=== PATIENT | male | born 1970 | race Caucasian/White ===

== ENCOUNTER 2019-03-24 18:20 | Emergency (ER) | payer OTHER ==
--- NOTE | 2019-03-24 18:33 | PDOC ---
Rapid Medical Evaluation Time Seen by Provider: 03/24/19 18:30 Medical Evaluation: 03/24/19 18:30 CC: lowwer back pain x2-3 weeks. Denies saddle anesthesia, incontinence of B/B, urinary retention, trauma PE: no bony tenderness to l/s spine Orders: tylenol Patient will proceed to ER for further evaluation. Discharge Disposition - Diagnosis Low back pain - Referrals - Patient Instructions - Post Discharge Activity
[2019-03-24 18:35] VITALS: BP 134/86; PULSE 99; TEMP 98; BMI 29.9
[2019-03-24] MEDS ORDERED: KETOROLAC TROMETHAMINE 60 MG/2 ML VIAL IM ONE (19:26)
[2019-03-24] MEDS ORDERED: diazePAM 5 MG TABLET PO ONE (19:26)
[2019-03-24] MEDS ORDERED: diazePAM 5 MG TABLET ONE (19:31)
[2019-03-24] MEDS ORDERED: KETOROLAC TROMETHAMINE 60 MG/2 ML VIAL ONE (19:31)
--- NOTE | 2019-03-24 20:19 | PDOC ---
History of Present Illness - General Chief Complaint: Back Pain Stated Complaint: SACRAL/PAIN Time Seen by Provider: 03/24/19 18:30 - History of Present Illness Initial Comments: 03/24/19 20:15 48-year-old male without comorbidities presents for evaluation of lower back pain with posterior lateral right leg radicular symptoms x2 days. No loss of bowel bladder function systemic symptoms or saddle paresthesias. Past History - Past Medical History Allergies/Adverse Reactions: Allergies Allergy/AdvReac Type Severity Reaction Status Date / Time No Known Allergies Allergy Verified 03/24/19 18:31 Home Medications: Ambulatory Orders Cyclobenzaprine HCl [Flexeril 10 mg] 10 mg PO HS PRN #10 tablet 03/24/19 Methylprednisolone [Medrol Dose Bryan] 4 mg PO ASDIR #21 tablet 03/24/19 - Psycho Social/Smoking Cessation Hx Smoking History: Never smoked Have you smoked in the past 12 months: No Hx Alcohol Use: Yes Drug/Substance Use Hx: No Review of Systems - Review of Systems Musculoskeletal: Yes: Back Pain *Physical Exam - Vital Signs Last Vital Signs Temp Pulse Resp BP Pulse Ox 98 F 99 H 18 134/86 100 03/24/19 18:32 03/24/19 18:32 03/24/19 18:32 03/24/19 18:32 03/24/19 18:32 - Physical Exam 03/24/19 20:16 Lumbar spine skin color and temperature normal range of motion is limited. No midline tenderness. Moderate bilateral lumbar musculature spasm and tenderness. 5 out of 5 strength bilateral lower extremities without gross sensorimotor deficits neurovascular intact. ED Treatment Course - RADIOLOGY Radiology Studies Ordered: Category Date Time Status SPINE-LUMBAR SACRAL [RAD] Stat Radiology 03/24/19 19:45 Ordered - Medications Given in the ED: ED Medications Discontinued Medications Generic Name Dose Route Start Last Admin Trade Name Freq PRN Reason Stop Dose Admin Diazepam 10 mg 03/24/19 19:26 03/24/19 19:32 Valium - PO 03/24/19 19:27 10 mg ONCE ONE Administration Ketorolac Tromethamine 60 mg 03/24/19 19:26 03/24/19 19:31 Toradol Injection - IM 03/24/19 19:27 60 mg ONCE ONE Administration Medical Decision Making - Medical Decision Making 03/24/19 20:17 Lumbar spine x-ray show no evidence of fracture trauma or destructive process disc height and foraminal spaces been well preserved in all levels. Mild L5-S1 foraminal stenosis Discharge - Discharge Information Problems reviewed: Yes Clinical Impression/Diagnosis: Low back pain, Lumbar radicular pain Condition: Stable Disposition: HOME - Admission No - Additional Discharge Information Prescriptions: Cyclobenzaprine HCl [Flexeril 10 mg] 10 mg PO HS PRN #10 tablet PRN Reason: Muscle Spasms Methylprednisolone [Medrol Dose Bryan] 4 mg PO ASDIR #21 tablet - Follow up/Referral Referrals: Mingo Haile MD [Primary Care Provider] - Steve Gomez MD, FAANS [Staff Physician] - - Patient Discharge Instructions Patient Printed Discharge Instructions: Lumbar Radiculopathy, DI for Lumbar Radiculopathy Additional Instructions: Please start the Medrol Dosepak in the morning and take the Flexeril as directed. Return to the emergency room for worsening symptoms and without fail follow-up with neurosurgery in 2 to 3 days for further evaluation and treatment options. - Post Discharge Activity Work/Back to School Note: Back to Work
== END 2019-03-24 20:30 | disposition home or self-care (01) ==
LOC: JERFT 18:20
PROC: 3E0233Z Introduction of Anti-inflammatory into Muscle, Percutaneous Approach (ICD-10-PCS; principal; 2019-03-24)
DX: M54.16 Radiculopathy, lumbar region (principal); M62.830 Muscle spasm of back
CPT/HCPCS: 72100-TC-FY; 99282-25

== ENCOUNTER 2020-12-25 02:12 | Emergency (ER) | payer OTHER ==
[2020-12-25] MEDS ORDERED: LACTATED RINGERS SOLUTION 1000 ML INFUS.BAG IV ONE (02:16)
[2020-12-25] MEDS ORDERED: dilTIAZem HCL 50 MG/10 ML - 10 ML VIAL IVPUSH ONE (02:16)
[2020-12-25 02:26] VITALS: BMI 28.5
[2020-12-25 02:32] VITALS: BP 133/88; PULSE 100
[2020-12-25] MEDS ORDERED: MAGNESIUM SULF 50% (8.12 MEQ/2 ML-1 GM VIAL) IVPB ONE (02:47)
[2020-12-25] MEDS ORDERED: MAGNESIUM 1GM/D5W - 2 GM/200 ML IVPB IVPB ONE (02:53)
[2020-12-25 03:07] LABS: BASO % 0.6 % (0-2.0); EOS % 5.1 % (0-4.5); HEMATOCRIT 40.9 % (35.4-49); HEMOGLOBIN 13.9 GM/dL (11.7-16.9); LYMPH % 40.3 % (8-40); MCH 30.1 pg (25.7-33.7); MCHC 33.9 g/dl (32.0-35.9); MEAN CELL VOLUME 88.7 fl (80-96); MEAN PLT VOLUME 7.2 fl (7.5-11.1); MONO % 9.3 % (3.8-10.2); NEUT % 44.7 % (42.8-82.8); PLATELET COUNT 276 10^3/uL (134-434); RBC 4.61 M/mm3 (4.00-5.60); RDW 13.3 % (11.9-15.9); WHITE BLOOD COUNT 6.9 K/mm3 (4.0-10.0)
[2020-12-25] MEDS ORDERED: MIDAZOLAM HCL 2 MG/2 ML SINGLE DOSE VIAL ONE (03:10)
[2020-12-25 03:20] LABS: INR 1.01 (0.83-1.09); PROTHROMBIN TIME (PATIENT) 11.3 SEC (9.7-13.0)
[2020-12-25 03:27] LABS: CHLORIDE 108 mmol/L (98-107); SODIUM 142 mmol/L (136-145)
[2020-12-25 03:29] LABS: CALCIUM 8.9 mg/dL (8.5-10.1)
[2020-12-25 03:30] LABS: ALBUMIN 3.7 g/dl (3.4-5.0); ANION GAP 5 MMOL/L (8-16); BLOOD UREA NITROGEN 14.6 mg/dL (7-18); CO2 28 mmol/L (21-32); GLUCOSE,RANDOM 105 mg/dL (74-106)
[2020-12-25 03:33] LABS: CREATININE 0.9 mg/dL (0.55-1.3); SGOT/AST 22 U/L (15-37); SGPT/ALT 21 U/L (13-61)
[2020-12-25 03:34] LABS: BILIRUBIN,TOTAL 0.2 mg/dL (0.2-1)
[2020-12-25 03:36] LABS: ALK PHOS 66 U/L (45-117)
[2020-12-25] MEDS ORDERED: MIDAZOLAM HCL 2 MG/2 ML SINGLE DOSE VIAL IVPUSH ONE ×2 (03:45)
[2020-12-25] MEDS ORDERED: PROPOFOL 200 MG/20 ML VIAL IVPUSH ONE (03:46)
[2020-12-25] MEDS ORDERED: PROPOFOL 20 ML ONE (03:46)
[2020-12-25] MEDS ORDERED: ACETAMINOPHEN 500 MG TABLET (FP) PO ONE (04:32)
[2020-12-25] MEDS ORDERED: ACETAMINOPHEN 500 MG TABLET (FP) ONE (04:34)
== END 2020-12-25 04:45 | disposition home or self-care (01) ==
LOC: FER 02:12
PROC: 3E033GC Introduction of Other Therapeutic Substance into Peripheral Vein, Percutaneous Approach (ICD-10-PCS; principal; 2020-12-25)
PROC: 3E033GC Introduction of Other Therapeutic Substance into Peripheral Vein, Percutaneous Approach (ICD-10-PCS; 2020-12-25)
PROC: 3E033NZ Introduction of Analgesics, Hypnotics, Sedatives into Peripheral Vein, Percutaneous Approach (ICD-10-PCS; 2020-12-25)
PROC: 3E033GC Introduction of Other Therapeutic Substance into Peripheral Vein, Percutaneous Approach (ICD-10-PCS; 2020-12-25)
DX: I48.91 Unspecified atrial fibrillation (principal); Z45.02 Encounter for adjustment and management of automatic implantable cardiac defibrillator
CPT/HCPCS: 36415; 71045-TC-FY; 80053; 82550; 84443; 84484; 85025; 85610; 93005; 93010; 99285-25; C9803; U0003; U0005